=== PATIENT | male | born 1950 | race Caucasian/White ===

== ENCOUNTER 2016-11-01 05:31 | Day surgery (SDC) | payer MEDICARE, OTHER ==
[2016-10-28 15:54] LABS: HEMATOCRIT 47.3 % (40.0-51.0)
[2016-10-28 16:04] LABS: BUN (BLOOD UREA NITROGEN) 11 MG/DL (6-23); CALCIUM, SERUM 8.6 MG/DL (8.5-10.4); CHLORIDE, SERUM 105 MMOL/L (96-112); CO2 (CARBON DIOXIDE) 29 MMOL/L (24-34); CREATININE 1.05 MG/DL (0.70-1.30); GFR AFRICAN AMERICAN 85 ML/MIN (>=60); GFR NON AFRICAN AMERICAN 73 ML/MIN (>=60); GLUCOSE, SERUM 108 MG/DL (60-99); SODIUM, SERUM 143 MMOL/L (135-148)
--- NOTE | ~2016-11-01 | OP ---
Record Of Operation [facility] [address] [place]. [address] NAME: JAYLEN DYER : 48 STATUS : [facility]#: [id number] AGE: 66 ADM/REG DATE : 11/01/16 MR#: [id number] REPORT SERV DATE: 11/02/16 DICTATED BY: NATHANIEL MOTT II DATE: 11/02/16 REPORT STATUS : Draft TRANSCRIBED BY: MODL DATE: 11/02/16 DATE OF PROCEDURE: 11/01/2016 PREOPERATIVE DIAGNOSES: 1. Right lower extremity radiculopathy, severe. 2. L4 and L5 nerve root compression. 3. Lower extremity radiculopathy (L4 and L5). POSTOPERATIVE DIAGNOSES: 1. Right lower extremity radiculopathy, severe. 2. L4 and L5 nerve root compression. 3. Lower extremity radiculopathy (L4 and L5). 4. Severe facet arthrosis and facet cyst compressing the L4 and L5 nerve roots. PROCEDURES: 1. Lumbar laminectomy for decompression of the L4 and L5 nerve roots. 2. Use of the microscope and stereotactic spinal imaging. SURGEON: Nathaniel Mott M.D. FLUIDS: 1300 mL LR. ESTIMATED BLOOD LOSS: 30 mL. DRAINS: None. COMPLICATIONS: None. ANTIBIOTIC: Preoperatively. PREOPERATIVE HISTORY: This is very friendly 66-year-old gentleman, who has been suffering with severe pain in the buttock and leg for approximately three months. He has failed conservative care. The pain is rather severe. I felt based upon his imaging studies that we should be able to adequately decompress the nerve roots (L4 and L5) without causing significant destabilization. I advised the patient and family that if this failed short or superintendent terminal, that we would need to then complete the facetectomy and perform fusion. DESCRIPTION OF PROCEDURE: After informed consent was obtained, the patient was brought to the operating room at his request and general anesthesia achieved. He was placed in the prone position and the back was prepped and draped in a sterile fashion. The stereotactic spinal pin was placed into the iliac crest on the left, and the intraoperative CT scan completed. Stereotactic guidance was then used throughout the remainder of the case. At this point, the minimally invasive incision was performed and the minimally invasive quadrant retractor was placed on the right at L4-5. We then brought the microscope into position and using stereotactic guidance and the microscope, we were able to then adequately Record Of Operation [facility] [address] [place]. [address] NAME: JAYLEN DYER : 48 STATUS : [facility]#: [id number] AGE: 66 ADM/REG DATE : 11/01/16 MR#: [id number] REPORT SERV DATE: 11/02/16 DICTATED BY: NATHANIEL MOTT II DATE: 11/02/16 REPORT STATUS : Draft TRANSCRIBED BY: ALFA DATE: 11/02/16 assess the anatomy. There was severe facet arthrosis. The facet capsule was maintained. The high-speed bur was now used to thin the lamina followed by use of the curettes and the Kerrison rongeurs to perform the lamina. The spinal laminar junction was now taken down and the significant ligamentum flavum removed. The central canal was then further decompressed additional portions of the spinolaminar junction. At this point, we then removed approximately 50% of the facet on the right. This appeared to give the L5 nerve root additional and adequate space. We then turned our attention to the L4. There appeared to be, at this point, a notable cyst, which appeared to have some blood within it. The cyst was now removed. This was of decent size and was compressing primarily the L4 nerve root, but it did appear to contact the very cranial portion of the L5 nerve root. At this point, I was pleased with the L4 nerve roots decompression as well. The wound was now irrigated. Hemostasis was confirmed and standard closure performed. The patient was extubated and transferred to PACU in stable condition. SARA/ALFA Nathaniel Mott II, M.D. / [id number] CC: Marisol Sosa II
[~2016-11-01 05:31] MED LIST: ASAB PO; LEVOTHYROXIN175 MCG PO; LIPITOR80 MG PO; PRILO PO; PRIN20 PO; TESTOST CYP100 MG/ML IM; XANAX1 MG PO; ZOL100 PO
== END 2016-11-01 14:05 | disposition home or self-care (01) ==
LOC: SDC 05:31
PROVIDERS: Orthopaedic Surgery
PROC: 01NB0ZZ Release Lumbar Nerve, Open Approach (ICD-10-PCS; principal; 2016-11-01 07:00)
DX: G54.9 Nerve root and plexus disorder, unspecified (principal); M47.9 Spondylosis, unspecified; I10 Essential (primary) hypertension; Z88.8 Allergy status to other drugs, medicaments and biological substances; Z79.899 Other long term (current) drug therapy; Z88.5 Allergy status to narcotic agent; H91.90 Unspecified hearing loss, unspecified ear; K21.9 Gastro-esophageal reflux disease without esophagitis; Z90.49 Acquired absence of other specified parts of digestive tract; F41.9 Anxiety disorder, unspecified; F32.9 Major depressive disorder, single episode, unspecified; Z98.890 Other specified postprocedural states; Z87.891 Personal history of nicotine dependence
CPT/HCPCS: 36415; 80048; 85014; 85018; 88304; 88311; 93005; J0690; J1030; J1170; J2250; J2370; J2405; J2710; J3010